=== PATIENT | male | born 1975 | race Caucasian/White ===

== ENCOUNTER 2018-07-03 19:21 | Emergency (ER) | payer SELFPAY ==
[2018-07-03 21:44] VITALS: BP 145/96
[2018-07-04] MEDS ORDERED: XYLOCAINE 1% MPF 5 mL INFILTRATI ONE (02:04)
[2018-07-04] MEDS ORDERED: ROCEPHIN IM ONE (02:04)
--- NOTE | 2018-07-04 02:11 | Emergency Department Report ---
- General Chief Complaint: Wound/Laceration Stated Complaint: RIGHT HAND PAIN/INFECTION Time Seen by Provider: 07/04/18 01:59 Source: patient Mode of arrival: Ambulatory Limitations: No Limitations - History of Present Illness Initial Comments: 43-year-old male comes in reporting that the wound to his right hand and bilateral forearm 8 days. Patient is on a sure of the original injury. He reports his treatment treatment but is now getting worse. He reports he found some antibiotics and has been taken that. Patient denies any symptoms of fever or infection. He should rate his pain a 10 out of 10. -: days(s) (8) Location: other (right hand first digit) Extremity Location: Right: Hand Place: work Patient Tetanus UTD: No Context: accidental Associated Symptoms: pain - Related Data Previous Rx's Medication Instructions Recorded Last Taken Type Cephalexin [Keflex] 500 mg PO BID #20 capsule 07/04/18 Unknown Rx Ibuprofen [Motrin 600 MG tab] 600 mg PO Q8H PRN #30 tablet 07/04/18 Unknown Rx Allergies Allergy/AdvReac Type Severity Reaction Status Date / Time No Known Allergies Allergy Unverified 07/03/18 22:11 ED Review of Systems ROS: Stated complaint: RIGHT HAND PAIN/INFECTION Other details as noted in HPI Skin: other (open wound) ED Past Medical Hx - Past Medical History Previous Medical History?: No - Surgical History Past Surgical History?: No - Social History Smoking Status: Current Some Day Smoker Substance Use Type: None - Medications Home Medications: Home Medications Medication Instructions Recorded Confirmed Last Taken Type Cephalexin [Keflex] 500 mg PO BID #20 capsule 07/04/18 Unknown Rx Ibuprofen [Motrin 600 MG tab] 600 mg PO Q8H PRN #30 tablet 07/04/18 Unknown Rx ED Physical Exam - General Limitations: No Limitations General appearance: alert, in no apparent distress - Head Head exam: Present: atraumatic, normocephalic - Respiratory Respiratory exam: Present: normal lung sounds bilaterally. Absent: respiratory distress - Cardiovascular Cardiovascular Exam: Present: regular rate, normal rhythm. Absent: systolic murmur, diastolic murmur, rubs, gallop - Neurological Exam Neurological exam: Present: alert, oriented X3 - Psychiatric Psychiatric exam: Present: normal affect, normal mood - Expanded Skin Exam Expanded Type of lesion: Present: other (open wound ulcerative) Distribution of rash: RUE (right hand proximal first digit) ED Course Vital Signs 07/03/18 07/03/18 21:33 22:07 Temperature 98.1 F 98.1 F Pulse Rate 89 90 Respiratory 18 18 Rate Blood Pressure 145/96 145/96 O2 Sat by Pulse 98 98 Oximetry ED Medical Decision Making - Medical Decision Making Patient has been evaluated by this provider fast track. Ibuprofen given for pain management. Wound care with wet to dry dressing with Madhu applied. Discharge patient on antibiotics Keflex and ibuprofen for pain management. Referral to [facility] wound care clinic. Critical care attestation.: If time is entered above; I have spent that time in minutes in the direct care of this critically ill patient, excluding procedure time. ED Disposition Clinical Impression: Open wound, hand Qualifiers: Encounter type: initial encounter Open wound type: unspecified Foreign body presence: unspecified Laterality: right Qualified Code(s): S61.401A - Unspecified open wound of right hand, initial encounter Disposition: TO HOME OR SELFCARE Is pt being admited?: No Does the pt Need Aspirin: No Condition: Stable Instructions: Wound Infection (ED) Additional Instructions: Complete antibiotics as prescribed. Pain medication as needed. It is very importantly to follow-up with the wound care clinic. I have listed their information below these give them a call at 8:00 in the morning to schedule an appointment Prescriptions: Cephalexin [Keflex] 500 mg PO BID #20 capsule Ibuprofen [Motrin 600 MG tab] 600 mg PO Q8H PRN #30 tablet PRN Reason: Pain Referrals: PRIMARY CARE, [Primary Care Provider] - 3-5 Days [facility] [Other] - 3-5 Days Forms: Work/School Release Form(ED)
[2018-07-04] MEDS ORDERED: NORCO 7.5/325 PO ONE (02:12)
[2018-07-04] MEDS ORDERED: BOOSTRIX IM ONE (02:12)
== END 2018-07-04 02:45 | disposition home or self-care (01) ==
LOC: ED 19:21
DX: S61.401A Unspecified open wound of right hand, initial encounter (principal); X58.XXXA Exposure to other specified factors, initial encounter; Y93.89 Activity, other specified; Y99.0 Civilian activity done for income or pay; Y92.69 Other specified industrial and construction area as the place of occurrence of the external cause
CPT/HCPCS: 90471; 90715; 96372; 99283; J0696